=== PATIENT | male | born 1960 | race Caucasian/White ===

== ENCOUNTER → 2020-05-24 15:44 | Outpatient (CLI) | payer OTHER, SELFPAY ==
[2020-05-24 16:44] LABS: Basophils % 0.3 % (0.1-2.0); Eosinophils # 0.2 K/mm3 (0.0-0.4); Eosinophils % 1.8 % (0.1-12.0); Hematocrit 46.8 % (42.0-52.0); Hemoglobin 15.7 g/dL (14.1-18.0); Lymphocytes % 32.2 % (10-50); Mean Corpuscular HGB Conc 33.5 g/dL (31.8-35.4); Mean Corpuscular Hemoglobin 31.1 pg (27.0-31.2); Mean Platelet Volume 8.1 fl (7.4-10.4); Monocytes # 0.7 K/mm3 (0.1-1.0); Monocytes % 5.4 % (1.7-9.3); Neutrophils # 7.4 K/mm3 (1.8-7.8); Neutrophils % 60.2 % (37.0-80.0); Platelet Count 257 K/mm3 (142-424); Red Blood Count 5.03 M/mm3 (4.60-6.20); Red Cell Distribution Width 13.4 % (11.5-17.5); White Blood Count 12.3 K/mm3 (4.8-10.8)
[2020-05-24 18:26] LABS: Chloride 105 mmol/L (98-107); Potassium 4.4 mmoL/L (3.5-5.1); Sodium 142 mmol/L (136-145)
[2020-05-24 18:29] LABS: Alanine Aminotransferase 22 U/L (12-78); Albumin Level 4.5 g/dl (3.5-5.0); Albumin/Globulin Ratio 1.7 (1.1-1.8); Alkaline Phosphatase 58 U/L (38-126); Anion Gap 10.4 mEq/L (5-15); Aspartate Amino Transferase 27 U/L (17-59); Bilirubin,Total 0.7 mg/dl (0.2-1.3); Blood Urea Nitrogen 12 mg/dl (9-20); Calcium 10.2 mg/dl (8.4-10.2); Carbon Dioxide 31 mmol/L (22.0-30.0); Cholesterol 215 mg/dl (140-200); Estimated Glomerular Filt Rate 62 ml/min (>60); GFR (African American) 76 ML/MIN (>60); Globulin 2.7 g/dL (1.3-3.2); Glucose 79 mg/dl (74-100); HDL Cholesterol 36 mg/dl (40-60); Total Protein,Serum 7.2 g/dl (6.3-8.2); Triglycerides 265 mg/dl (30-150); VLDL Cholesterol 53 mg/dL (0-40)
[2020-05-24 18:41] LABS: Direct LDL Cholesterol 137.65 mg/dL (100-129)
== END ==
PROVIDERS: Visit Provider Internal Medicine Adolescent Medicine
DX: I25.118 Atherosclerotic heart disease of native coronary artery with other forms of angina pectoris (principal)
CPT/HCPCS: 36415; 80053; 80061; 85025

== ENCOUNTER → 2020-05-28 11:18 | Outpatient (CLI) | payer OTHER, SELFPAY ==
--- NOTE | 2020-05-28 | CA_ITS ---
APPROVED REPORT Exam: Pharmacologic Technologist: Elysia Lunsford, Ht: 6 ft 1 in Wt: 208 lbs BSA: 2.19 m2 HR: 56 bpm BP: 124/82 mmHg Stress Test Details Test: LEXISCAN HR Resting HR: 58 bpm Max Heart Rate (APMHR): 163 bpm Max HR Achieved: 91 bpm Target HR (85% APMHR): 138 bpm % of APMHR: 55 Recovery HR: 72 bpm BP Resting BP: 124/82 mmHg Max BP: 132/74 mmHg Recovery BP: 129.0/79.0 mmHg ECG Resting ECG: Sinus Pollo Clinical Exercise duration: 04:00 min Highest Stage Achieved: Exercise capacity: 1.0 METs Stress ECG Conclusion Lexiscan portion completed. Pt c/o shortness of breath during peak infusion. Symptoms: No CP, (+) SOB during peak infusion, resolved in recovery. Arrythmias/Ectopy: No ectopy noted. ST-T Changes: Less than 1.5mm ST depression. Conclusion: Images to follow. Test Summary REST . . . . . . . Resting REST 08:01 . . 58 . 124/ 82 . . Stage 1 . . . . . . . Myoview Injected Stage 1 01:00 . . 69 . . . . Stage 2 01:00 . . 89 . 120/ 79 . . Stage 3 01:00 . . 85 . 132/ 74 . . Stage 4 01:00 . . 78 . 128/ 78 . Stop exercise at 04:00 RECOVERY 01:00 . . 84 . . . . RECOVERY 02:00 . . 76 . 119/ 82 . . RECOVERY 03:00 . . 68 . 129/ 79 . . RECOVERY 03:58 . . 74 . 129/ 79 . . Electronically signed by : Homar Paz, 05/31/2020 08:41:24
--- NOTE | 2020-05-28 12:14 | NM_ITS ---
APPROVED REPORT Exam: Nuclear Stress Test Indication: chest pain..short of breath..palpitations..fatigue Patient Location: Outpatient Stress Tech: Madison Sibley [place] Tech:Radha AlejandraMEGHANA RT(R)(N) Ht: 6 ft 1 in Wt: 208 lbs HR: 56 bpm BP: 124/82 mmHg BSA: 2.19 m2 BMI: 27.4 History: chest pain..short of breath..palpitations..fatigue Procedure: Patient received a 0.4 mg of intravenous Lexiscan, resting heart rate 56 bpm, resting blood pressure 124/82 mmHg, with Lexiscan maximum heart rate achived was 85 bpm which is 85 % of the maximum predicted heart rate and blood pressure was 132/74 mmHg. With Lexiscan, patient denied any complaint of chest pain. Cardiac Stress and Resting SPECT Images: Cardiac Stress and Resting SPECT images were obtained using technetium 99m Myoview 32.3 mCi stress and 10.43 mCi at rest. EF 52 % Slightly low EF No wall motion abnormalities No fixed or reversible defects Conclusion: EF 52 % Slightly low EF No wall motion abnormalities No fixed or reversible defects Electronically signed by : Dany Baum MD 05/31/2020 13:30:18
== END ==
PROVIDERS: PCP Internal Medicine Adolescent Medicine; Visit Provider Internal Medicine Adolescent Medicine
DX: R06.00 Dyspnea, unspecified (principal); I25.118 Atherosclerotic heart disease of native coronary artery with other forms of angina pectoris; I10 Essential (primary) hypertension
CPT/HCPCS: 78452; 93017; A9502; J2785

== ENCOUNTER → 2020-06-14 13:39 | Outpatient (CLI) | payer OTHER, SELFPAY ==
[2020-06-14 14:40] VITALS: PULSE 63; PULSE 67
== END ==
PROVIDERS: PCP Internal Medicine Adolescent Medicine; Visit Provider Internal Medicine Adolescent Medicine
DX: R06.02 Shortness of breath (principal); R07.89 Other chest pain
CPT/HCPCS: 94060; 94618; 94640; 94726; 94729